=== PATIENT | female | born 1965 | race Caucasian/White ===

== ENCOUNTER 2017-01-05 14:17 | Emergency (ER) | payer MEDICARE, OTHER ==
[2017-01-05 15:49] LABS: BASOPHIL 0.1 % (0-2); EOSINOPHIL 0.8 % (0-5); HCT 35.5 % (37.0-47.0); HGB 12.5 g/dl (12.5-16.0); LYMPHOCYTE 25.6 % (15-48); MCH 30.1 pg (25.0-31.0); MCHC 35.2 g/dL (32.0-36.0); MCV 85.5 fL (78.0-100.0); MONOCYTE 9.5 % (0-12); MPV 8.4 fL (6.0-9.5); PLT 712 K/uL (150-400); RBC 4.15 M/uL (4.20-5.40); RDW 13.6 % (11.5-14.0); WBC 17.8 K/uL (4.0-10.5)
[2017-01-05 16:06] LABS: ALBUMIN 3.5 g/dL (3.5-5.0); BILIRUBIN - TOTAL 0.5 mg/dL (0.1-1.0); CREATININE 0.8 mg/dL (0.5-1.0); GLOBULIN (CALCULATION) 3.8 g/dL (2.2-4.2); POTASSIUM 3.5 mmol/L (3.5-5.1); TOTAL PROTEIN 7.3 g/dL (6.4-8.3)
== END 2017-01-05 16:47 | disposition home or self-care (01) ==
LOC: FER 14:17
PROVIDERS: Emergency Medicine
DX: J20.9 Acute bronchitis, unspecified (principal); J44.9 Chronic obstructive pulmonary disease, unspecified; F17.210 Nicotine dependence, cigarettes, uncomplicated
CPT/HCPCS: 36415; 71020; 80053; 85025; 99283